=== PATIENT | male | born 1970 | race Caucasian/White ===

== ENCOUNTER 2023-06-19 | Inpatient (IN) | payer MEDICAID ==
[~2023-06-19] VITALS: Ht 165.1 cm; Wt 94.0 kg
[2023-06-19] MEDS ORDERED: METF-81 PO (03:18)
[2023-06-19] MEDS ORDERED: AMLO-257 PO (03:25)
[2023-06-19] MEDS ORDERED: ZOLPIDEM TARTRATE 10 MG TABLET PO PRN (19:15)
[2023-06-19] MEDS ORDERED: HALOPERIDOL 5 MG TABLET PO PRN (19:15)
[2023-06-19 20:20] VITALS: BP 143/91; PULSE 94; RESP 18; TEMP 98.8
[2023-06-19] MEDS ORDERED: PNEUMOCOCCAL VACCINE POLYVALENT 0.5 ML SYRINGE [PPSV23] IM. ONE (20:30)
[2023-06-19] MEDS ORDERED: TRAZ-252 PO (21:20)
[2023-06-19] MEDS ORDERED: PROP1TAB PO (21:20)
[2023-06-19] MEDS ORDERED: GABA-1201 PO (21:20)
[2023-06-19] MEDS ORDERED: LOSA-382 PO (21:20)
[2023-06-19] MEDS ORDERED: BUSP15 PO (21:20)
[2023-06-19] MEDS ORDERED: PROP20TA18 PO (21:20)
[2023-06-19] MEDS ORDERED: FLUO20CA36 PO (21:20)
[2023-06-19] MEDS ORDERED: PANT-31 PO (21:20)
[2023-06-19 21:26] VITALS: BP 140/78; PULSE 89; RESP 18; TEMP 98; O2SAT 98
[2023-06-19] MEDS: LORazepam 2 MG TABLET PO PRN (21:27)
[2023-06-20 05:01] LABS: GLUCOMETER DEV NAME(LOC) BV2S.; GLUCOSE,POINT OF CARE 129 MG/DL (70-110)
[2023-06-20] MEDS ORDERED: PETROLATUM,WHITE 28 GM JELLY TP PRN (06:45)
[2023-06-20] MEDS ORDERED: LOPERAMIDE HCL 2 MG CAPSULE PO PRN (06:45)
[2023-06-20] MEDS ORDERED: ALBUTEROL SULFATE HFA 90 MCG/PUFF 8 GM INHALER IH PRN (06:45)
[2023-06-20] MEDS ORDERED: ACETAMINOPHEN 325 MG TABLET PO PRN (06:45)
[2023-06-20] MEDS ORDERED: ONDANSETRON HCL 4 MG TABLET PO PRN (06:45)
[2023-06-20] MEDS ORDERED: DOCUSATE SODIUM 100 MG CAPSULE PO PRN (06:45)
[2023-06-20] MEDS ORDERED: IBUPROFEN 400 MG TABLET PO PRN (06:45)
[2023-06-20] MEDS ORDERED: MAG HYDROX/ALUMINUM HYD/SIMETH ES 30 ML SUSPENSION UDCUP PO PRN (06:45)
[2023-06-20] MEDS ORDERED: GuaiFENesin/D-METHORPHAN [SUGAR-FREE] 200-20MG/10 ML SYRUP UDCUP PO PRN (06:45)
[2023-06-20 08:23] VITALS: BP_SYST 144; BP_SYST 170; BP_DIAS 102; PULSE 88; RESP 17; TEMP 97; O2SAT 96
[2023-06-20] MEDS: CloNIDine HCL 0.1 MG TABLET PO PRN (08:31)
[2023-06-20 08:54] LABS: BASOPHILS % (AUTO) 0.6 % (0.0-2.0); EOSINOPHILS % (AUTO) 3.4 % (1.0-6.0); HEMATOCRIT 39.8 % (41-53); HEMOGLOBIN 13.7 g/dL (13.5-17.5); LYMPHOCYTES # (AUTO) 1.7 K/uL (1.0-4.8); LYMPHOCYTES % (AUTO) 17.3 % (22.0-44.0); MEAN CORPUSCULAR HEMOGLOBIN 31.5 pg (26.0-34.0); MEAN CORPUSCULAR HGB CONC 34.5 G/dL (31.0-37.0); MEAN CORPUSCULAR VOLUME 91 fL (80-100); MONOCYTES # (AUTO) 0.8 K/uL (0.1-1.0); MONOCYTES % (AUTO) 7.8 % (2.0-9.0); NEUTROPHILS # (AUTO) 6.9 K/uL (1.8-7.7); NEUTROPHILS % (AUTO) 70.9 % (40.0-70.0); PLATELET COUNT (AUTO) 338 K/uL (150-450); RED BLOOD CELL COUNT(AUTO) 4.36 MIL/uL (4.50-5.90); RED CELL DISTRIBUTION WIDTH 15.1 % (11.5-14.5); WHITE BLOOD COUNT (AUTO) 9.8 K/uL (4.5-11.0)
[2023-06-20] MEDS ORDERED: PROPRANOLOL HCL 20 MG TABLET PO PRN (09:15)
[2023-06-20 09:18] LABS: ALANINE AMINOTRANSFERASE 29 U/L (12-78); ALBUMIN 3.6 g/dL (3.4-5.0); ALKALINE PHOSPHATASE 113 U/L (46-116); ANION GAP 7 mmol/L (8-16); ASPARTATE AMINOTRANSFERASE 22 U/L (15-37); BILIRUBIN,TOTAL 0.5 mg/dL (0.1-1.0); CALCIUM, TOTAL 9.4 mg/dL (8.8-10.5); CARBON DIOXIDE 30 mmol/L (22-29); CHLORIDE 99 mmol/L (98-107); CHOL/HDL RATIO 3.1 (4.2-7.3); CHOLESTEROL 202 mg/dL (131-200); CREATININE 0.97 mg/dL (0.60-1.30); FREE T4 (FREE THYROXINE) 1.21 ng/dL (0.76-1.46); GLOMERULAR FILTR. RATE CALC > 60 mL/min (>60); GLUCOSE,RANDOM 213 mg/dL (70-110); HDL CHOLESTEROL 66 mg/dL (40-60); LDL CHOL (CALC.) 116 mg/dL (0-130); POTASSIUM 4.4 mmol/L (3.5-5.1); SODIUM SERUM 136 mmol/L (136-145); THYROID STIMULATING HORMONE 2.75 uIU/mL (0.36-3.74); TOTAL PROTEIN, SERUM 7.6 g/dL (6.4-8.2); TRIGLYCERIDES 98 mg/dL (15-150); UREA NITROGEN, BLOOD 12 mg/dL (7-18)
[2023-06-20 09:19] LABS: ALCOHOL, BLOOD (SERUM) < 3 mg/dL (0-10)
[2023-06-20 10:15] VITALS: BP 140/100
[2023-06-20] MEDS: AmLODIPine BESYLATE 5 MG TABLET PO SCH ×2 (10:19→20:30)
[2023-06-20] MEDS: FLUoxetine HCL 20 MG CAPSULE PO SCH (14:00)
[2023-06-20] MEDS: BusPIRone HCL 15 MG TABLET PO SCH (14:01)
[2023-06-20] MEDS: PANTOPRAZOLE SODIUM 40 MG DR TABLET PO SCH (16:31)
[2023-06-20 16:50] VITALS: BP 154/98; PULSE 83; RESP 18
[2023-06-20] MEDS: TraZODone HCL 100 MG TABLET PO SCH (20:29)
[2023-06-20] MEDS: OLANZapine 5 MG TABLET PO SCH (20:29)
[2023-06-20 20:56] VITALS: BP 152/65; PULSE 84; TEMP 98.4
[2023-06-20 21:22] VITALS: BP 134/84; PULSE 89; RESP 18; TEMP 98; O2SAT 98
[2023-06-21] MEDS: MetFORMIN HCL 500 MG ER TABLET PO SCH (06:42)
[2023-06-21] MEDS: LOSARTAN POTASSIUM 50 MG TABLET PO SCH (08:24)
[2023-06-21 09:04] VITALS: BP 167/110; PULSE 105; RESP 17; TEMP 97.4; O2SAT 98
[2023-06-21 10:23] VITALS: BP 165/98
[2023-06-21] MEDS ORDERED: HydrOXYzine PAMOATE 50 MG CAPSULE PO PRN (13:00)
[2023-06-21] MEDS: AmLODIPine BESYLATE 5 MG TABLET PO SCH (17:14)
[2023-06-21 20:18] VITALS: BP 155/93; PULSE 102; RESP 18; TEMP 98.4; O2SAT 98
[2023-06-22 08:16] VITALS: BP 165/98; PULSE 98; RESP 17; TEMP 96.5; O2SAT 98
[2023-06-22] MEDS: MAGNESIUM HYDROXIDE SUSPENSION 30 ML UDCUP PO PRN (09:03)
[2023-06-22] MEDS ORDERED: TRAZ-257 PO (10:32)
[2023-06-22] MEDS ORDERED: OLAN5TAB52 PO (10:40)
== END 2023-06-22 12:10 | disposition home or self-care (01) | DRG 751 ==
LOC: B2S 19:23
PROVIDERS: ADMIT Psychiatry & Neurology Child & Adolescent Psychiatry; ATTEND Psychiatry & Neurology Child & Adolescent Psychiatry
DX: F33.2 Major depressive disorder, recurrent severe without psychotic features (principal); E11.9 Type 2 diabetes mellitus without complications; F41.9 Anxiety disorder, unspecified; G47.00 Insomnia, unspecified; E66.9 Obesity, unspecified; I10 Essential (primary) hypertension; Z79.899 Other long term (current) drug therapy; Z79.84 Long term (current) use of oral hypoglycemic drugs; Z68.34 Body mass index [BMI] 34.0-34.9, adult; Z88.8 Allergy status to other drugs, medicaments and biological substances
CPT/HCPCS: 80053; 80061; 82962; 84439; 84443; 85025; 87081; G0480

== ENCOUNTER 2023-06-19 02:03 | Emergency (ER) | payer MEDICAID, OTHER ==
[~2023-06-19] VITALS: Ht 165.1 cm; Wt 96.4 kg
[2023-06-19 02:04] VITALS: TEMP 96.8
[2023-06-19 03:16] LABS: BASOPHILS % (AUTO) 0.5 % (0.0-2.0); EOSINOPHILS % (AUTO) 3.1 % (1.0-6.0); HEMATOCRIT 39.8 % (41-53); HEMOGLOBIN 13.8 g/dL (13.5-17.5); LYMPHOCYTES % (AUTO) 17.6 % (22.0-44.0); MEAN CORPUSCULAR HEMOGLOBIN 31.6 pg (26.0-34.0); MEAN CORPUSCULAR HGB CONC 34.8 G/dL (31.0-37.0); MEAN CORPUSCULAR VOLUME 91 fL (80-100); MONOCYTES # (AUTO) 0.7 K/uL (0.1-1.0); MONOCYTES % (AUTO) 6.5 % (2.0-9.0); NEUTROPHILS # (AUTO) 8.3 K/uL (1.8-7.7); NEUTROPHILS % (AUTO) 72.3 % (40.0-70.0); PLATELET COUNT (AUTO) 331 K/uL (150-450); RED BLOOD CELL COUNT(AUTO) 4.38 MIL/uL (4.50-5.90); RED CELL DISTRIBUTION WIDTH 14.9 % (11.5-14.5); WHITE BLOOD COUNT (AUTO) 11.5 K/uL (4.5-11.0)
[2023-06-19] MEDS ORDERED: METF-81 PO (03:18)
[2023-06-19] MEDS ORDERED: AMLO-257 PO (03:25)
[2023-06-19 03:55] LABS: ALCOHOL, BLOOD (SERUM) < 3 mg/dL (0-10)
[2023-06-19 04:05] LABS: ANION GAP 10 mmol/L (8-16); CALCIUM, TOTAL 10.4 mg/dL (8.8-10.5); CARBON DIOXIDE 29 mmol/L (22-29); CHLORIDE 97 mmol/L (98-107); CREATININE 1.09 mg/dL (0.60-1.30); GLOMERULAR FILTR. RATE CALC > 60 mL/min (>60); GLUCOSE,RANDOM 140 mg/dL (70-110); POTASSIUM 4.2 mmol/L (3.5-5.1); SODIUM SERUM 136 mmol/L (136-145); UREA NITROGEN, BLOOD 10 mg/dL (7-18)
[2023-06-19 04:06] LABS: PH,URINE DRUG SCREEN 6.5 (5.0-8.0)
[2023-06-19] MEDS: AmLODIPine BESYLATE 10 MG TABLET PO ONE (04:09)
[2023-06-19] MEDS: CloNIDine HCL 0.1 MG TABLET PO ONE (04:09)
[2023-06-19 04:11] LABS: ALCOHOL, URINE DRUG SCREEN NEGATIVE (NEGATIVE); AMPHET/METH SCREEN,URINE NEGATIVE (NEGATIVE); BARBITURATE SCREEN, URINE NEGATIVE (NEGATIVE); BENZODIAZEPINES SCREEN,URINE NEGATIVE (NEGATIVE); CANNABINOID SCREEN,URINE NEGATIVE (NEGATIVE); COCAINE SCREEN,URINE NEGATIVE (NEGATIVE); METHADONE SCREEN, URINE NEGATIVE (NEGATIVE); OPIATE SCREEN,URINE NEGATIVE (NEGATIVE); PHENCYCLIDINE SCREEN,URINE NEGATIVE (NEGATIVE)
[2023-06-19 04:11] LABS: ALANINE AMINOTRANSFERASE 31 U/L (12-78); ALBUMIN 3.9 g/dL (3.4-5.0); ALKALINE PHOSPHATASE 114 U/L (46-116); ASPARTATE AMINOTRANSFERASE 24 U/L (15-37); BILIRUBIN,TOTAL 0.7 mg/dL (0.1-1.0); TOTAL PROTEIN, SERUM 7.9 g/dL (6.4-8.2)
[2023-06-19 05:34] VITALS: BP 147/77; PULSE 89; RESP 16
[2023-06-19] MEDS ORDERED: TRAZ-252 PO (21:20)
[2023-06-19] MEDS ORDERED: GABA-1201 PO (21:20)
[2023-06-19] MEDS ORDERED: PROP20TA18 PO (21:20)
[2023-06-19] MEDS ORDERED: BUSP15 PO (21:20)
[2023-06-19] MEDS ORDERED: PROP1TAB PO (21:20)
[2023-06-19] MEDS ORDERED: FLUO20CA36 PO (21:20)
[2023-06-19] MEDS ORDERED: PANT-31 PO (21:20)
[2023-06-19] MEDS ORDERED: LOSA-382 PO (21:20)
== END 2023-06-19 06:19 | disposition home or self-care (01) ==
LOC: EMS 02:06
DX: I10 Essential (primary) hypertension (principal); F32.A Depression, unspecified; E11.9 Type 2 diabetes mellitus without complications; Z88.8 Allergy status to other drugs, medicaments and biological substances
CPT/HCPCS: 99283; 80053; 85025; 36415; 80307; G0480